=== PATIENT | female | born 1960 | race Two or more races ===

== ENCOUNTER 2024-03-28 14:03 | Emergency (ER) | payer OTHER ==
[~2024-03-28] VITALS: Ht 147.3 cm; Wt 47.6 kg
[2024-03-28] MEDS ORDERED: PROZAC20 MG (14:21)
[2024-03-28] MEDS ORDERED: ATIVAN0.5 M1 (14:21)
[2024-03-28] MEDS ORDERED: PROZAC10 M1 (14:21)
[2024-03-28] MEDS ORDERED: FAMOTIDINE/PF 20 MG in 0.9 % SODIUM CHLORIDE 8 ML IV PUSH STA (16:18)
[2024-03-28] MEDS ORDERED: LORazepam 2 MG/ML VIAL ONE (16:28)
[2024-03-28] MEDS ORDERED: ONDANSETRON HCL 2 MG/ML VIAL ONE (16:28)
[2024-03-28] MEDS ORDERED: FAMOTIDINE/PF 20 MG/2 ML VIAL ONE (16:28)
[2024-03-28] MEDS ORDERED: LORazepam 2 MG/ML VIAL IV ONE (16:30)
[2024-03-28] MEDS ORDERED: ONDANSETRON HCL 2 MG/ML VIAL IV ONE (16:30)
[2024-03-28] MEDS ORDERED: 0.9 % SODIUM CHLORIDE 1,000 ML IV SCH (16:30)
[2024-03-28 16:47] LABS: HEMATOCRIT 38.6 % (36.0-45.00); HEMOGLOBIN 13.5 g/dL (12.0-15.00); MEAN CELL VOLUME 91.3 fL (80.00-100.00); MEAN CORPUSCULAR HEMOGLOBIN 31.8 pg (27.00-32.0); MEAN CORPUSCULAR HGB CONC 34.9 g/dl (32.0-36.0); PLATELET COUNT 214 K/uL (150-450); RED BLOOD COUNT 4.23 M/uL (4.00-6.00); RED CELL DISTRIBUTION WIDTH 13.8 % (11.5-14.5)
[2024-03-28 17:08] LABS: ALBUMIN 3.6 gm/dL (3.4-5.0); BILIRUBIN TOTAL 0.49 mg/dL (0.3-1.2); CALCIUM 9.1 mg/dL (8.5-10.1); CREATININE SERUM 0.82 mg/dL (0.55-1.02); GFR 70.87; GLOBULINA 3.1 G/DL (2.4-3.5); TOTAL PROTEIN 6.7 gm/dL (6.4-8.2)
[2024-03-28] MEDS ORDERED: PEPCID AC20 MG PO (18:15)
== END 2024-03-28 18:35 | disposition home or self-care (01) ==
LOC: ER 14:04
PROVIDERS: General Practice
DX: K29.70 Gastritis, unspecified, without bleeding (principal); R11.10 Vomiting, unspecified; Z88.0 Allergy status to penicillin